=== PATIENT | female | born 1990 | race Two or more races ===

== ENCOUNTER 2018-09-21 15:13 | Emergency (ER) | payer MEDICAID, OTHER ==
[~2018-09-21] VITALS: Ht 157.5 cm; Wt 67.1 kg
[2018-09-21 15:59] LABS: Urine Bacteria NONE SEEN /hpf (None Seen); Urine Blood Negative /uL (Negative); Urine Mucus FEW (None Seen); Urine Specific Gravity 1.028 (1.001-1.035); Urine WBC 3 /hpf (0 - 5)
[2018-09-21 21:26] VITALS: BP 136/70
== END 2018-09-21 22:24 | disposition home or self-care (01) ==
LOC: ER 15:18
DX: N39.0 Urinary tract infection, site not specified (principal)
CPT/HCPCS: 81001; 81025